=== PATIENT | male | born 1980 | race Caucasian/White ===

== ENCOUNTER 2016-11-08 19:13 | Emergency (ER) | payer OTHER ==
[~2016-11-08] VITALS: Ht 180.3 cm; Wt 81.6 kg
--- NOTE | 2016-11-08 19:47 | PHYS DOC ---
Past Medical History Past Medical History: No Pertinent History Past Surgical History: No Surgical History Alcohol Use: Occasionally Drug Use: None Adult General Chief Complaint Chief Complaint: HEADACHE HPI HPI 36-year-old male no significant past medical history now presents to emergency department complaining of gradual onset of headache over the last day. Patient does not have a history of migraines. He states this headache is severe he's had some nausea associated with it. Denies photophobia. Some pain with movement of his neck. Patient perceives subjective fevers and chills and denies other complaints. No confusion speech changes numbness weakness or difficulty with strength or coordination or gait Review of Systems Review of Systems Constitutional: Denies fever or chills [] Eyes: Denies change in visual acuity, redness, or eye pain [] HENT: Denies nasal congestion or sore throat [] Respiratory: Denies cough or shortness of breath [] Cardiovascular: No additional information not addressed in HPI [] GI: Denies abdominal pain, nausea, vomiting, bloody stools or diarrhea [] : Denies dysuria or hematuria [] Musculoskeletal: Denies back pain or joint pain [] Integument: Denies rash or skin lesions [] Neurologic: Denies headache, focal weakness or sensory changes [] Endocrine: Denies polyuria or polydipsia [] Current Medications Current Medications Current Medications Medications (Trade) Dose Ordered Sig/Isis Start Time Stop Time Status Last Admin Dose Admin Dexamethasone Sodium Phosphate (Decadron) 10 mg 1X ONCE 11/08/16 20:30 11/08/16 20:31 DC 11/08/16 20:33 10 MG Diphenhydramine HCl (Benadryl) 25 mg 1X ONCE 11/08/16 20:30 11/08/16 20:31 DC 11/08/16 20:29 25 MG Hydromorphone HCl (Dilaudid) 0.5 mg 1X ONCE 11/08/16 23:00 11/08/16 23:01 IN 11/08/16 22:53 0.5 MG Lidocaine/Sodium Bicarbonate (Buffered Lidocaine 1%) 20 ml STK-MED ONCE 11/08/16 21:15 11/08/16 21:16 DC Metoclopramide HCl (Reglan) 10 mg 1X ONCE 11/08/16 20:30 11/08/16 20:31 IN 11/08/16 20:23 10 MG Sodium Chloride 1,000 ml @ 1,000 mls/hr 1X ONCE 11/08/16 20:30 11/08/16 21:29 DC 11/08/16 20:21 1,000 MLS/HR Allergies Allergies Allergies Coded Allergies Type Severity Reaction Last Updated Verified No Known Drug Allergies 11/08/16 No Physical Exam Physical Exam Muscular 36-year-old male no acute distress uncomfortable appearing L pain reproducible with movement of his neck. Nonfocal neurologically Constitutional: Well developed, well nourished, no acute distress, non-toxic appearance. [] HENT: Normocephalic, atraumatic, bilateral external ears normal, oropharynx moist, no oral exudates, nose normal. [] Eyes: PERRLA, EOMI, conjunctiva normal, no discharge. [] Neck: Normal range of motion, no tenderness, supple, no stridor. [] Cardiovascular:Heart rate regular rhythm, no murmur [] Lungs & Thorax: Bilateral breath sounds clear to auscultation [] Abdomen: Bowel sounds normal, soft, no tenderness, no masses, no pulsatile masses. [] Skin: Warm, dry, no erythema, no rash. [] Back: No tenderness, no CVA tenderness. [] Extremities: No tenderness, no cyanosis, no clubbing, ROM intact, no edema. [] Neurologic: Alert and oriented X 3, normal motor function, normal sensory function, no focal deficits noted. [] Psychologic: Affect normal, judgement normal, mood normal. [] Current Patient Data Vital Signs Vital Signs Date Time Temp Pulse Resp B/P (MAP) Pulse Ox O2 Delivery O2 Flow Rate FiO2 11/08/16 23:46 58 12 132/76 (94) 95 Room Air 11/08/16 20:48 3.0 11/08/16 20:15 100.2 100.2 Lab Values Laboratory Tests Test 11/08/16 19:25 11/08/16 22:18 White Blood Count 11.1 x10^3/uL (4.0-11.0) H Red Blood Count 5.82 x10^6/uL (4.30-5.70) H Hemoglobin 17.2 g/dL (13.0-17.5) Hematocrit 51.3 % (39.0-53.0) Mean Corpuscular Volume 88 fL (79-100) Mean Corpuscular Hemoglobin 30 pg (25-35) Mean Corpuscular Hemoglobin Concent 34 g/dL (31-37) Red Cell Distribution Width 13.0 % (11.5-14.5) Platelet Count 281 x10^3/uL (140-400) Sodium Level 142 mmol/L (136-145) Potassium Level 3.1 mmol/L (3.5-5.1) L Chloride Level 102 mmol/L (98-107) Carbon Dioxide Level 27 mmol/L (21-32) Anion Gap 13 (6-14) Blood Urea Nitrogen 13 mg/dL (8-26) Creatinine 1.3 mg/dL (0.7-1.3) Estimated GFR (Cockcroft-Gault) 62.1 Glucose Level 110 mg/dL (70-99) H Calcium Level 9.5 mg/dL (8.5-10.1) CSF Tube Number 1 CSF Volume 2.0 CSF Color Colorless CSF Clarity Clear CSF WBC 0 CSF RBC 114 CSF Glucose 71 mg/dL (37-70) H CSF Total Protein 55.8 mg/dL (15.0-45.0) H Laboratory Tests 11/08/16 19:25 Laboratory Tests 11/08/16 19:25 EKG EKG [] Radiology/Procedures Radiology/Procedures Lumbar puncture performed by ABBY Vazquez Patient consented procedure explained. Seated position sterile prep and drape with Betadine. 1% lidocaine preservative free buffered solution used for anesthesia. 21-gauge spinal needle inserted at the L2-3 level. Productive of clear spinal fluid. 4 tubes collected and needle removed without complication. Patient tolerated well complications no increased headache patient laid down. [] Course & Med Decision Making Course & Med Decision Making Pertinent Labs and Imaging studies reviewed. (See chart for details) A 36-year-old male new-onset headache no signs and symptoms consistent with possible meningitis however patient is nontoxic appearing and if he does have a [employer] infection is likely viral. Analgesia given with improvement of symptoms. He has a nonfocal neurologic exam. Upper unremarkable vital signs stable lumbar puncture done after unremarkable CT head and results pending. If unremarkable we 'll prescribe analgesia and patient will follow-up with PCP. He has agree with outpatient follow-up and will return immediately for any severe worsening symptoms. This and continued to do well clinically. LP results unremarkable. No further workup or treatment indicated at this time as patient is nontoxic appearing .He and his significant other agreed with outpatient follow-up and strict return precautions were given. [] Dragon Disclaimer Dragon Disclaimer This electronic medical record was generated, in whole or in part, using a voice recognition dictation system. Departure Departure Impression: Primary Impression: Headache Disposition: HOME, SELF-CARE Condition: IMPROVED Referrals: NO PCP (PCP) Patient Instructions: General Headache Without Cause Additional Instructions: It is not clear what caused your headache today. Your lumbar puncture did not suggest you have meningitis.The CAT scan of the head was normal today Rest and drink plenty of fluids. Take ibuprofen 800 mg every 6 hours and use Somers as needed. You may find Benadryl [id number] helpful as well. Follow-up with your doctor tomorrow and return immediately for any severe or worsening symptoms Scripts Hydrocodone/Apap 5-325 (NORCO 5-325 TABLET) 1 Each Tablet 1 TAB PO PRN Q6HRS Y for PAIN, #8 TAB 0 Refills Prov: MARIBEL WILKINSON MD 11/08/16 MARIBEL WILKINSON MD Nov 08, 2016 19:47
[2016-11-08] MEDS ORDERED: IV NORMAL SALINE 1000ML BAG 1,000 ML IV ONE (20:30)
[2016-11-08] MEDS ORDERED: HYDROmorphone 2 MG/ML VIAL IV ONE ×2 (20:30→23:00)
[2016-11-08] MEDS ORDERED: diphenhydrAMINE 50 MG/ML VIAL IVP ONE (20:30)
[2016-11-08] MEDS ORDERED: METOCLOPRAMIDE HCL 10 MG/2 ML VIAL. IV ONE (20:30)
[2016-11-08] MEDS ORDERED: DEXAMETHASONE SOD PHOS 20 MG/5 ML VIAL. IV ONE (20:30)
[2016-11-08 20:33] LABS: HEMATOCRIT 51.3 % (39.0-53.0); HEMOGLOBIN 17.2 g/dL (13.0-17.5); RED BLOOD COUNT 5.82 x10^6/uL (4.30-5.70); WHITE BLOOD COUNT 11.1 x10^3/uL (4.0-11.0)
--- NOTE | 2016-11-08 20:52 | RAD ---
CT HEAD WO CONTRAST dated 11/08/2016 8:20 PM Indication: Headache, painSEVERE HEADACHE SINCE YESTERDAY, NO PRIORS. Comparison: No comparison is available. Technique: Contiguous axial imaging the head was performed from skull base to vertex. One or more of the following individualized dose reduction techniques were utilized for this examination: 1. Automated exposure control 2. Adjustment of the mA and/or kV according to patient size 3. Use of iterative reconstruction technique Findings: Ventricles and sulci within normal limits for age. No midline shift or mass effect. Brain parenchyma is of normal attenuation. No hemorrhage or extra-axial collection. Posterior fossa and brainstem unremarkable. Visualized paranasal sinuses and mastoid air air cells are clear there is a small mucous retention cysts of the left sphenoid sinus. No acute calvarial abnormality. IMPRESSION: 1. No evidence of acute intracranial abnormality. Electronically signed by: Dany Martins MD (11/08/2016 8:49 PM) [facility]
[2016-11-08 20:55] LABS: CALCIUM 9.5 mg/dL (8.5-10.1); CREATININE 1.3 mg/dL (0.7-1.3); GFR 62.1; POTASSIUM 3.1 mmol/L (3.5-5.1)
[2016-11-08] MEDS ORDERED: LIDOCAINE 1% / SOD BICARB 8.4% 20 ML VIAL. IJ ONE (21:15)
[2016-11-08 22:44] LABS: CSF CLARITY CLEAR; CSF COLOR COLORLESS
[2016-11-08] MEDS ORDERED: HYDR-971 PO (22:57)
[2016-11-08 23:00] LABS: CSF PROTEIN 55.8 mg/dL (15.0-45.0)
[2016-11-08 23:03] LABS: CSF CLARITY CLEAR; CSF COLOR COLORLESS
[2016-11-08 23:46] VITALS: BP 132/76
== END 2016-11-09 00:11 | disposition home or self-care (01) ==
LOC: ER 19:13
DX: R51 Headache (principal); M54.2 Cervicalgia; R11.0 Nausea
CPT/HCPCS: 36415; 62270; 70450; 80048; 82945; 84157; 85027; 89051; 96361; 96374; 96375; 96376; 99285; J1100; J1170; J1200; J2765; J7030